=== PATIENT | male | born 1990 | race Two or more races ===

== ENCOUNTER 2024-07-14 07:54 | Emergency (ER) | payer OTHER, SELFPAY ==
[2024-07-14] VITALS (11 sets, daily range): BP systolic 117–140; BP diastolic 58–87; PULSE 73–93; RESP 15–20; TEMP 36.4–36.7; O2SAT 97–100; BMI 27.5
--- NOTE | ~2024-07-14 | XR_ITS ---
CLINICAL HISTORY: post reduction --- Additional Notes or Special Instructions: post reduction AP and transscapular Y view right shoulder Comparison: None Findings: Normal congruency of the glenohumeral joint. AC joint intact No fractures or bony erosions. Normal bone mineralization and soft tissues. No radiopaque foreign body. Normal visualized right chest. Impression: 1. No fracture, subluxations or dislocations right shoulder. This document has been electronically signed by: Rashid Medniola MD on 07/14/2024 11:37:40
--- NOTE | ~2024-07-14 | XR_ITS ---
CLINICAL HISTORY: ?dislocation --- Additional Notes or Special Instructions: PT states via iPad Inte rpreter that they are unable to lower arm at all due to pain level. RN is aware that imaging is limit ed to one as is image and will further assess the PT. Single view right shoulder Comparison: None Findings: Limited single-view right shoulder. there is probable dislocation of the glenohumeral joint additional views are recommended Impression: 1. Probable dislocation of the glenohumeral joint additional views are recommended for confirmation This document has been electronically signed by: Rashid Mendiola MD on 07/14/2024 09:07:12
--- NOTE | 2024-07-14 08:09 | ED.EXTPRO ---
HPI - Extremity Problem General Chief complaint: Extremity Injury, Upper Stated complaint: dislocated r shoulder Time Seen by Provider: 07/14/24 09:30 Source: patient and supervisor cereal (Alea ) Mode of arrival: ambulatory Limitations: language barrier History of Present Illness ED Provider: HPI Narrative: Uzbek girl speaking 34-year-old male presenting with right shoulder pain, inability to lower the shoulder, he states he was come in after work and was lifting something and he felt like his shoulder dislocated he has had this 5 times prior to this 1st time when he was in his mid 20s that was related to a sports injury. Has never had it managed. No other trauma today. Related Data Allergies Allergy/AdvReac Type Severity Reaction Status Date / Time No Known Allergies Allergy Verified 07/14/24 08:03 [facility] Social History Social History Advance Directives: No Advance Directives Information Provided: No Physical Exam Vital Signs: Vital Signs: Last Vital Signs Temp 98.0 F 07/14/24 10:49 Pulse 80 07/14/24 10:49 Resp 20 07/14/24 10:49 BP 121/77 07/14/24 10:49 Pulse Ox 100 07/14/24 10:49 O2 Del Method Room Air 07/14/24 08:00 Oxygen Flow Rate 4 07/14/24 10:49 BMI result Body Mass Index 27.5 Const: Other: Gen: ?And discomfort HEENT: PERRLA, EOMI, MMM, Neck: Supple, no LAD CV: RRR, no obvious murmurs appreciated Resp: ?No wheezing rales rhonchi no stridor moving air well Abd: ?Bowel sounds are present, no tenderness no rebound no rigidity MSK: Radial pulse +2 bilateral upper extremities, inability to a lower right upper extremity secondary to pain in the shoulder Skin: Warm, dry, intact, Neuro: ?Alert and oriented x3, moving upper and lower extremities symmetrically, no obvious facial asymmetry noted Medications Administered Discontinued Medications Generic Name Dose Route Start Last Admin Trade Name Freq PRN Reason Stop Dose Admin Propofol 100 mg 07/14/24 09:55 07/14/24 10:51 Propofol 200 Mg/20 Ml Vial IVPUSH 07/14/24 09:56 100 mg ONCE ONE Administration Propofol 40 mg 07/14/24 10:39 07/14/24 10:52 Propofol 200 Mg/20 Ml Vial IVPUSH 07/14/24 10:40 40 mg ONCE ONE Administration Medical Decision Making Medical Decision Making [facility] Narrative: 09:53 patient's x-rays independently interpreted by me, also reviewed radiologist's report, there is definitely glenohumeral overlap but he is also holding his shoulder up and so Y-view, true AP view were not obtained, 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 He is otherwise healthy individual with Mallampati score of the 1, he has been NPO for many hours at the 6-8, no other trauma is noted, no neurovascular compromise in the right upper extremity, once we have a room I will examine and reduce him. I also discussed with him that as this is a recurrent issue he will need orthopedic follow up ultimately he needs capsulorrhaphy. 1100: Postreduction films obtained, confirmed reduction Independent Interpretation I performed an independent interpretation of an: Plain X-Ray (Suboptimal views considering glenohumeral dislocation, likely anterior) Procedures Orthopedic Joint Reduction right shoulder: Time Out Performed: Yes Side: right Joint Reduction Location: shoulder Analgesia: procedural sedation Shoulder Technique Used (if applicable): external rotation Post-reduction neuro exam: intact Post-reduction vascular: intact Post Reduction X-Ray Obtained: Yes Post Reduction X-Ray Results: reduced Splint Applied: Yes Patient Tolerated Procedure: well Procedural Sedation Indication: fracture/dislocation reduction ASA Class: I Mallampati Class: I Time of Last PO Intake: 02:00 Preparation: quality assurance monitor chassis applied, pulse oximeter, capnometry used, supplemental O2 applied, suction/airway equipment at bedside and IV secured IV Propofol dose (mg): 140 Patient Tolerated Procedure: well Complications: none Discharge Plan Discharge Clinical Impression: Anterior dislocation of right glenohumeral joint Patient Disposition: Home, Self-Care Additional Instructions: I am providing you with a number of orthopedic surgeons, as discussed is this is a recurrent issue he will need surgical tightening of the capsule, in the meantime big bag of ice to shoulder every day for 20 minutes, ibuprofen 400 mg [id number] as needed for pain or Tylenol 975 mg every 6 hours needed for pain, keep the sling in place when going outside, and sleeping but you can remove for bathing and just to make sure you do not lift her arm up above 90 degrees and externally rotate it. Not sure what you do for work but there is no heavy lifting for now. You were evaluated with right shoulder anterior dislocation, received medications for reduction, shoulder was reduced. Referrals: [facility] [Provider Group] Stand Alone Forms: Work/School Release Print Language: Angel Morrow
--- NOTE | 2024-07-14 08:40 | PC.NURSE ---
patient was unable to complete xray of right shoulder d/t pain.
--- NOTE | 2024-07-14 10:12 | PC.NURSE ---
patient moved into ed16 for conscious sedation of right shoulder. placed on monitoring specialist, IV established. suction at bedside as well as crash cart.
[2024-07-14] MEDS: propofoL 200 MG/20 ML VIAL 100 MG IVPUSH (10:51)
[2024-07-14] MEDS: propofoL 200 MG/20 ML VIAL 40 MG IVPUSH (10:52)
--- NOTE | 2024-07-14 11:26 | PC.NURSE ---
Pt tolerated procedure well. VSS. Tolerating RA well. Sling applied. A/Ox4. Responding appropriately. Repeat xray done
--- NOTE | 2024-07-14 11:47 | PC.NURSE ---
Pt ambulated to the bathroom with a steady gait
--- NOTE | 2024-07-14 11:48 | PC.NURSE ---
patient appears to be at baseline at this time
--- NOTE | 2024-07-14 11:58 | PC.NURSE ---
Pt states he will call and uber to get home and will cigar packer and picker his car later when he is able to drive
== END 2024-07-14 12:00 | disposition home or self-care (01) ==
PROVIDERS: Emergency Provider Emergency Medicine
DX: S43.004A Unspecified dislocation of right shoulder joint, initial encounter (principal); X58.XXXA Exposure to other specified factors, initial encounter; Y93.9 Activity, unspecified; Y92.9 Unspecified place or not applicable; Y99.9 Unspecified external cause status; M25.511 Pain in right shoulder
CPT/HCPCS: 73020; 73030; 96374; 99284; 99285; J2704

== ENCOUNTER → 2024-07-14 08:30 | Outpatient (BNV) | payer OTHER, SELFPAY | PROVIDERS: Emergency Provider Emergency Medicine; Visit Provider Radiology Diagnostic Radiology | DX: M25.511 Pain in right shoulder (principal) | CPT/HCPCS: 73020; 73030 ==

== ENCOUNTER → 2024-07-18 07:24 | Outpatient (BNV) | payer OTHER, SELFPAY | PROVIDERS: Emergency Provider Emergency Medicine Emergency Medical Services; Visit Provider Radiology Diagnostic Radiology | DX: S43.014A Anterior dislocation of right humerus, initial encounter (principal) | CPT/HCPCS: 73030 ==

== ENCOUNTER 2024-07-18 09:54 | Emergency (ER) | payer OTHER, SELFPAY ==
[2024-07-18] VITALS (15 sets, daily range): BP systolic 120–153; BP diastolic 70–87; PULSE 75–94; RESP 12–18; TEMP 36.6–36.8; O2SAT 94–100; BMI 26.9
--- NOTE | ~2024-07-18 | XR_ITS ---
EXAMINATION: XR SHOULDER 2 OR MORE VIEWS RIGHT HISTORY: Status post reduction film COMPARISON: Comparison is made with the prior examination performed earlier in the day. FINDINGS: Two views of the right shoulder are submitted. Osseous mineralization is normal. There has been interval reduction of the previously seen anterior dislocation of the humeral head. No fracture is seen. The glenohumeral joint is not well evaluated due to obliquity. The AC joint is maintained. The soft tissues are unremarkable. XR/XR shoulder RT min 2V IMPRESSION: Interval reduction of the previously seen anterior dislocation of the humeral head. Electronically signed by: Ap Sousa MD 07/18/2024 09:32 AM EDT
--- NOTE | ~2024-07-18 | XR_ITS ---
EXAMINATION: XR SHOULDER 2 OR MORE VIEWS RIGHT HISTORY: ? Dislocation COMPARISON: Comparison is made with the prior examination dated 07/14/2024. FINDINGS: Two views of the right shoulder are submitted. Osseous mineralization is normal. There is anterior dislocation of the humeral head. No fracture is seen. The AC joint space is preserved. The soft tissues are unremarkable. XR/XR shoulder RT min 2V IMPRESSION: Anterior dislocation of the humeral head. Electronically signed by: Ap Sousa MD 07/18/2024 09:14 AM EDT
--- NOTE | 2024-07-18 07:45 | PC.NURSE ---
track laying supervisor- video track laying supervisor used Darryl # [id number]
--- NOTE | 2024-07-18 08:17 | ED_ITS ---
HPI - Extremity Problem General Chief complaint: Extremity Injury, Upper Stated complaint: shoulder dislocation ? Time Seen by Provider: 07/18/24 08:10 Source: patient Mode of arrival: ambulatory Limitations: language barrier (Hungarian Creole speaking) History of Present Illness ED Provider: Dr. Jamal Lee HPI Narrative: 34-year-old male with a history of multiple dislocations of his his shoulder evaluation of possible right shoulder dislocation. Patient was pointing at something and he felt his bone move out of his socket. Misty's recently here in the emergency department on 07/14/2024 with a shoulder dislocation secondary to lifting something with no significant trauma. Patient states that he has had dislocation of his at least 5 other times in the past mainly when he was in his 20s and these were related to sports injuries. Your during the patient's previous ED visit he not able to be reduced without procedural sedation secondary to his pain patient was given a total of propofol 140 mg at that time. Related Data Allergies Allergy/AdvReac Type Severity Reaction Status Date / Time No Known Allergies Allergy Verified 07/18/24 07:39 Review of Systems Review of Systems: Yes all other systems are reviewed and are negative Physical Exam Vital Signs: Vital Signs: Last Vital Signs Temp 97.9 F 07/18/24 07:35 Pulse 83 07/18/24 09:13 Resp 12 07/18/24 09:13 BP 130/73 07/18/24 09:13 Pulse Ox 94 07/18/24 09:13 O2 Del Method Room Air 07/18/24 07:35 Oxygen Flow Rate 2 07/18/24 09:13 BMI result Body Mass Index 26.9 Vital signs were normal Exam: General: Awake, alert in distress secondary to painExam: General: Awake, alert in no distress Head: Normocephalic, atraumatic EENT: PERRL, Lids normal, sclera normal, conjunctiva normal, nose normal , ears normal, throat without erythema or exudates Neck: Supple, no adenopathy Lung: breath sounds symmetric, no wheezing, rales or rhonchi Chest: symmetric movement, nontender Heart: regular rate and rhythm, normal S1, S2 no murmurs or rubs Abdomen: soft, non-tender, nondistended, normal bowel sounds Back: no vertebral tenderness, no CVAT Extremities: Significant pain with minimal movement of the right shoulder, exam consistent with your dislocated Neuro: Awake, alert, oriented, normal speech, cranial nerves intact, moves all extremities symmetrically Psych: Pleasant, cooperative Medications Administered Discontinued Medications Generic Name Dose Route Start Last Admin Trade Name Alexy PRN Reason Stop Dose Admin Hydromorphone HCl 1 mg 07/18/24 08:11 07/18/24 08:40 Hydromorphone Hcl 1 Mg/Ml Syringe IVPUSH 07/18/24 08:12 1 mg ONCE STA Administration Protocol Medical Decision Making Medical Decision Making MDM Narrative: 34-year-old male with a history of multiple dislocations of his his shoulder evaluation of possible right shoulder dislocation. Patient was pointing at something and he felt his bone move out of his socket. Misty's recently here in the emergency department on 07/14/2024 with a shoulder dislocation secondary to lifting something with no significant trauma. Patient states that he has had dislocation of his at least 5 other times in the past mainly when he was in his 20s and these were related to sports injuries. Your during the patient's previous ED visit he not able to be reduced without procedural sedation secondary to his pain patient was given a total of propofol 140 mg at that time. Vital signs were normal. Physical examination was consistent with an anterior right shoulder dislocation Differential diagnosis: ?Includes but is not limited to right shoulder dislocation, fracture Course: 09:25 Patient was given procedural sedation with propofol and received 140 mg of propofol. Patient's shoulders was then easily reduced with traction counter traction. The patient was placed in a sling and swath. Postreduction x-rays revealed good reduction with no fracture. Patient tolerated the procedure well. 09:52 The patient is awake back to his baseline. I did discuss the fact that he needs to keep the sling on and if he removes the sling that he should keep his arm close to his body as if he is wearing the sling. I told him that his shoulder can easily popped out if he tries to reach out or over his head. The patient will be referred to our orthopedic group for re-evaluation. I told him to call the orthopedic group and they will arrange appropriate follow-up. Patient understood these instructions. Patient was given a note not to return to work for 2 weeks. Admission/Observation Consideration of admission/observation: Escalation of care including admission/observation considered (No) Independent Interpretation Interpretation: My independent interpretation patient's right shoulder x-ray is as follows: Anterior dislocation with no acute fracture seen Radiology Impression Radiologist Impression: XR shoulder RT min 2V IMPRESSION: Anterior dislocation of the humeral head. Electronically signed by: Ap Sousa MD 07/18/2024 09:14 AM EDT Procedures Orthopedic Joint Reduction Right shoulder anterior dislocation: Time Out Performed: Yes Side: right Joint Reduction Location: shoulder Analgesia: procedural sedation (Propofol 140 mg IV) Shoulder Technique Used (if applicable): traction/counter-traction Post-reduction neuro exam: intact Post-reduction vascular: intact Post Reduction X-Ray Obtained: Yes Post Reduction X-Ray Results: reduced Splint Applied: Yes (Sling and swath applied by me) Patient Tolerated Procedure: well Additional Comments: My procedural start time was 09:04 hours, with procedural end time at 09.24 hours for a total of 20 minutes. Procedural Sedation Indication: fracture/dislocation reduction ASA Class: I Preparation: awake overnight monitor applied, pulse oximeter, supplemental O2 applied, suction/airway equipment at bedside and IV secured IV Propofol dose (mg): 140 Patient Tolerated Procedure: well Complications: none Interventions: oxygen applied Discharge Plan Discharge Clinical Impression: Anterior dislocation of right shoulder Patient Disposition: Home, Self-Care Instructions: Shoulder Dislocation (ED), Shoulder Immobilizer (ED) Additional Instructions: You dislocated your shoulder and we were able to get it back in place. You did receive procedural sedation with propofol. Please follow the post sedation instructions. I want you to keep the sling and strap on for 2 weeks. You can take the sling off to get undressed but you need to keep your arm close to your body as if the sling was on. If you reach out or up you will easily dislocate your shoulder again. Take ibuprofen 200 mg pills, 2 pills every 6 hours as needed for pain or fever. Take Tylenol (acetaminophen) 500 mg pills, 2 pills every 6 hours as needed for pain or fever. Follow-up with our orthopedic group. Call the office today to make a follow-up appointment, the imaging scheduler will determine the appropriate time for you to follow-up. Please return to the emergency department if your symptoms get worse or if you develop any symptoms that are concerning to you. Please see the work Referrals: Javier Ace MD [Physician] - 2 weeks (Right anterior shoulder dislocation, 2nd time in 1 week, occurred while reaching forward, no trauma. Patient had multiple right she will dislocations in his 20s) Stand Alone Forms: Work/School Release Print Language: Hungarian Creole
[2024-07-18] MEDS: HYDROmorphone HCl 1 MG/ML SYRINGE IVPUSH (08:40)
--- NOTE | 2024-07-18 09:30 | PC.NURSE ---
patient presented to the ED with right shoulder dislocation. conscious sedation requested by ED provider. Room set up with code cart, suction, oxygen, ambu bag, CO2 monitoring. patient placed on tele, VSS. all interaction with patient done with [facility] creole interpretor. patient is awake, alert and oriented x4, npo since midnight. patient has IV in left FA. please see additional EMR for procedure notes. patient recieved a total of 140mg propafol IVP. procedure finished at 0912.
--- NOTE | 2024-07-18 09:46 | PC.NURSE ---
patient is now awake and alert post right shoulder reduction. [facility] for all interaction with patient
[2024-07-18] MEDS: propofoL 200 MG/20 ML VIAL IVPUSH (09:48)
--- NOTE | 2024-07-18 10:43 | PC.NURSE ---
patient dc instructions given, [facility] recruiter used. patient ambulates with steady gait, sling on right arm.
--- OUTSIDE RECORDS SUMMARY | 2024-07-18 11:15 | XMS_ITS | Clinical Summary ---
Author Organization [facility] [employer] Address [address] [place] [address] Care Team Providers [employer] Delivery Consultant Name Role Phone Unavailable Primary Care Provider Unavailabl e Allergies No known active allergies Medications No known medications Social History Tobacco Use Types Packs/Day Years Used Date Smoking Tobacco: Never Tobacco Cessation:Counseling Given: Not Answered Alcohol Use Standard Drinks/Week Comments Never 0 (1 standard drink = 0.6 oz pur e alcohol) Sex and Gender Information Value Date Recorded Sex Assigned at Male 10/18/2023 11:27 AM EDT Legal Sex Male 3:49 PM EDT Gender Identity Male 10/18/2023 11:27 AM EDT Sexual Orientation Straight 10/18/2023 11 :27 AM EDT Last Filed Vital Signs Vital Sign Reading Time Taken Comments Blood Pressure 110/70 12/29/2023 9:53 AM EST Pulse - - Temperature - - Respiratory Rate - - Oxygen Saturation - - Inhaled Oxygen Concentration - - Weight - - Height - - Body Mass Index - - Plan of Treatment Health Maintenance Due Date Last Done Comments Dental Oral Exam 1991 Dental Prophylaxis 1991 Dental X-Ray: Bitewings 1991 Dental X-Ray: Full Mouth 1991 Depression Screening 1991 HIV Screening 1991 SDOH Screening 1991 Disability Screening 1991 Alcohol/Substance Use Screening 2003 Family Planning (PISQ) 2006 Hepatitis C Screening 2009 DTaP/Tdap/Td Vaccines (1 - Tdap) 2010 Hepatitis B Vaccines (1 of 3 - 19+ 3-dose series) 2010 COVID-19 Vaccine ( - 2023-2 5 season) 2023 Influenza Vaccine (Season Ended) 2024 Tobacco Screening 12/28/2024 12/29/2023 Zoster Vaccines (1 of 2) 2041 RSV Patients and Pa tients Aged 60 years or older (1 - 1-dose 75+ series) 2066 HIB Vaccines Aged Out No longer eligi ble based on patient's age to complete this topic HPV Vaccines Aged Out No longer eligi ble based on patient's age to complete this topic Hepatitis A Vaccines Aged Out No long er eligible based on patient's age to complete this topic IPV Vaccines Aged Out No longer eligi ble based on patient's age to complete this topic Meningococcal B Vaccine Aged Out No l onger eligible based on patient's age to complete this topic Meningococcal Vaccine Aged Out No michael jackie eligible based on patient's age to complete this topic Pneumococcal Vaccine: Pediat rics (0 to 5 Years) and At-Risk Patients (6 to 49) Years) Aged Out No longer elig ible based on patient's age to complete this topic RSV under 20 months Aged Out No longe r eligible based on patient's age to complete this topic Rotavirus Vaccines Aged Out No longer eligible based on patient's age to complete this topic Insurance DENTAL - HSN PARTIAL (MEDICAID)
== END 2024-07-18 10:45 | disposition home or self-care (01) ==
PROVIDERS: Emergency Provider Emergency Medicine Emergency Medical Services
DX: M24.411 Recurrent dislocation, right shoulder (principal); M25.511 Pain in right shoulder
CPT/HCPCS: 23650; 73030; 96374; 96375; 99283; 99284; J1171; J2704